=== PATIENT | female | born 1985 | race Caucasian/White ===

== ENCOUNTER 2017-08-17 16:05 | Emergency (ER) | payer SELFPAY ==
[~2017-08-17] VITALS: Ht 167.6 cm; Wt 81.8 kg
[2017-08-17] MEDS ORDERED: ULTRACET1 TABLET PO (17:10)
[2017-08-17] MEDS ORDERED: ULTRAM50 MG PO (17:30)
[2017-08-17 17:52] VITALS: BP 127/95
== END 2017-08-17 17:52 | disposition home or self-care (01) ==
LOC: EME 16:05
DX: S60.211A Contusion of right wrist, initial encounter (principal); W18.30XA Fall on same level, unspecified, initial encounter; F17.200 Nicotine dependence, unspecified, uncomplicated
CPT/HCPCS: 73110; 73130; 99281; 99284

== ENCOUNTER 2017-08-29 18:50 | Emergency (ER) | payer SELFPAY ==
[~2017-08-29] VITALS: Ht 170.2 cm; Wt 82.1 kg
[~2017-08-29 18:50] MED LIST: ULTRACET1 TABLET PO; ULTRAM50 MG PO
[2017-08-29 19:00] VITALS: BP 141/86
[2017-08-29] MEDS ORDERED: DIFLUCAN150 MG PO (20:23)
[2017-08-29] MEDS ORDERED: ULTRAM50 MG PO (20:23)
== END 2017-08-29 20:31 | disposition home or self-care (01) ==
LOC: EME 18:50
DX: S60.211A Contusion of right wrist, initial encounter (principal); X58.XXXA Exposure to other specified factors, initial encounter; B37.49 Other urogenital candidiasis
CPT/HCPCS: 73110; 99281; 99283

== ENCOUNTER 2017-10-01 08:11 | Emergency (ER) | payer OTHER ==
[~2017-10-01] VITALS: Ht 170.2 cm; Wt 86.4 kg
[~2017-10-01 08:11] MED LIST changes: +DIFLUCAN150 MG PO
[2017-10-01] MEDS ORDERED: FLEXERIL10 MG PO (09:25)
[2017-10-01 09:45] VITALS: BP 123/80
== END 2017-10-01 09:45 | disposition home or self-care (01) ==
LOC: EME 08:11
DX: S06.0X0A Concussion without loss of consciousness, initial encounter (principal); M79.1 Myalgia; M25.531 Pain in right wrist; V49.9XXA Car occupant (driver) (passenger) injured in unspecified traffic accident, initial encounter; Y92.410 Unspecified street and highway as the place of occurrence of the external cause; F41.9 Anxiety disorder, unspecified; F17.200 Nicotine dependence, unspecified, uncomplicated
CPT/HCPCS: 73110; 99281; 99284